=== PATIENT | male | born 1990 | race Caucasian/White ===

== ENCOUNTER → 2020-07-10 | Outpatient (CLI) | payer OTHER ==
[2020-07-10 15:37] LABS: BASOPHILS % (AUTO) 1 % (0-1); EOSINOPHILS % (AUTO) 7 % (1-7); LYMPHOCYTES % (AUTO) 35 % (22-44); MEAN CORPUSCULAR HGB CONC 34.4 g/dL (33.2-36.2); MEAN PLATELET VOLUME 8.6 fL (7.4-10.4); MONOCYTES % (AUTO) 6 % (2-9); NEUTROPHILS % (AUTO) 51 % (42-75); PLATELET COUNT 339 x10^3/uL (130-400); RED BLOOD COUNT 4.85 x10^6/uL (4.38-5.82); RED CELL DISTRIBUTION WIDTH 13.9 % (9.4-14.8)
[2020-07-10 15:45] LABS: MD NO
[2020-07-10 15:50] LABS: ANION GAP 4 mmol/L (5-15); CALCIUM 9.1 mg/dL (8.5-10.1); CHLORIDE 107 mmol/L (98-107)
[2020-07-10 15:52] LABS: CREATININE 1.38 mg/dL (0.7-1.3)
[2020-07-10 15:55] LABS: INTERNATIONAL NORMALIZED RATIO 1.01 (0.93-1.1); PROTHROMBIN TIME 10.7 Seconds (9.6-11.5)
[2020-07-10 16:21] LABS: MICROSCOPIC NOT IND
== END | disposition home or self-care (01) ==
LOC: STAR 14:42
PROVIDERS: ATTEND Neurological Surgery
DX: Z01.812 Encounter for preprocedural laboratory examination (principal); Z20.828 Contact with and (suspected) exposure to other viral communicable diseases; M48.02 Spinal stenosis, cervical region; I49.8 Other specified cardiac arrhythmias
CPT/HCPCS: 80048; 81003; 85025; 85610; 85730; 87635; 93005

== ENCOUNTER 2020-07-16 08:52 | Day surgery (SDC) | payer OTHER ==
[~2020-07-16] VITALS: Ht 177.8 cm; Wt 83.3 kg
[2020-07-16 09:24] VITALS: BP 142/83
[2020-07-16] MEDS ORDERED: CHLORHEXIDINE 15 ML UDC ONE (09:28)
[2020-07-16] MEDS ORDERED: CHLORHEXIDINE 15 ML UDC MM ONE (09:30)
[2020-07-16] MEDS: LACTATED RINGERS 1,000 ML IV SCH ×2 (09:56→17:10)
[2020-07-16] MEDS ORDERED: HALOPERIDOL 5 MG/ML IV PRN (10:00)
[2020-07-16] MEDS ORDERED: PROMETHAZINE 25 MG/ML, 1ML IVPush PRN (10:00)
[2020-07-16] MEDS ORDERED: hydrALAzine 20 MG/ML, 1ML IV PRN (10:00)
[2020-07-16] MEDS ORDERED: OXYcodone 5 MG/5 ML ORAL.SOL UDC PO PRN (10:00)
[2020-07-16] MEDS ORDERED: HYDROmorphone 1 MG/ML, 1ML INJ IVPush PRN (10:00)
[2020-07-16] MEDS ORDERED: LABETALOL 5MG/ML, 20ML IV PRN (10:00)
[2020-07-16] MEDS ORDERED: MEPERIDINE/PF 25MG/0.5ML IVPush PRN (10:00)
[2020-07-16] MEDS ORDERED: DIPHENHYDRAMINE 50 MG/ML, 1ML IVPush PRN (10:00)
[2020-07-16] MEDS ORDERED: ACETAMINOPHEN 500 MG TABLET ONE (10:08)
[2020-07-16] MEDS ORDERED: GABAPENTIN 300 MG CAPSULE ONE (10:09)
[2020-07-16] MEDS ORDERED: METHYLENE BLUE 50 MG/10 ML AMP ONE (10:10)
[2020-07-16] MEDS ORDERED: EPINEPHRINE 1 MG/ML, 1ML ONE (10:10)
[2020-07-16] MEDS ORDERED: BACITRACIN 50,000 UNIT ONE (10:10)
[2020-07-16] MEDS ORDERED: BUPIVACAINE/PF 0.5% ONE (10:10)
[2020-07-16] MEDS ORDERED: GABAPENTIN 300 MG CAPSULE PO ONE (10:30)
[2020-07-16] MEDS ORDERED: ACETAMINOPHEN 500 MG TABLET PO ONE (10:30)
[2020-07-16] MEDS ORDERED: FENTANYL PF 250 MCG/5ML ONE (10:59)
[2020-07-16] MEDS ORDERED: MIDAZOLAM 1 MG/ML, 2ML ONE (10:59)
[2020-07-16] MEDS ORDERED: DEXAMETHASONE 4 MG/ML, 1ML ONE (11:23)
[2020-07-16] MEDS ORDERED: BACITRACIN 50,000 UNIT IRRIG ONE (11:47)
[2020-07-16] MEDS ORDERED: BUPIVACAINE/PF-EPI 0.5% 1:200K INFIL ONE (11:47)
[2020-07-16] MEDS ORDERED: GLYCOPYRROLATE 0.2MG/1ML, 5ML ONE (12:42)
[2020-07-16] MEDS ORDERED: ONDANSETRON 2MG/ML, 2ML ONE (12:42)
[2020-07-16] MEDS ORDERED: CEFAZOLIN 1,000 MG ONE (12:42)
[2020-07-16] MEDS ORDERED: NEOSTIGMINE 1 MG/ML, 10ML ONE (12:42)
[2020-07-16] MEDS ORDERED: SUCCINYLCHOLINE 20 MG/ML, 10ML ONE (12:42)
[2020-07-16] MEDS ORDERED: ROCURONIUM 10MG/ML,5ML ONE (12:42)
[2020-07-16] MEDS ORDERED: PROPOFOL 10 MG/ML, 20ML ONE (12:42)
[2020-07-16] MEDS ORDERED: FENTANYL PF 100 MCG/2ML ONE (13:33)
[2020-07-16] MEDS ORDERED: OXYcodone 5 MG/5 ML ORAL.SOL UDC ONE (13:33)
[2020-07-16] MEDS: FENTANYL PF 100 MCG/2ML IV PRN ×2 (13:36→13:41)
[2020-07-16] MEDS ORDERED: HYDROcodone/APAP 10/325 MG TABLET PO PRN (14:30)
[2020-07-16] MEDS ORDERED: CYCLOBENZAPRINE 10 MG TABLET PO PRN (14:30)
[2020-07-16] MEDS ORDERED: OXYcodone/APAP 5/325MG TABLET PO PRN (17:00)
[2020-07-16] MEDS ORDERED: ONDANSETRON 2MG/ML, 2ML IVPush PRN (17:00)
== END 2020-07-16 21:20 | disposition home or self-care (01) ==
LOC: OUT 08:52
PROVIDERS: ATTEND Neurological Surgery
DX: M54.12 Radiculopathy, cervical region (principal); M47.12 Other spondylosis with myelopathy, cervical region; M25.78 Osteophyte, vertebrae; M48.02 Spinal stenosis, cervical region; Z72.89 Other problems related to lifestyle; Z79.899 Other long term (current) drug therapy; Z90.49 Acquired absence of other specified parts of digestive tract; Z98.890 Other specified postprocedural states; Z83.3 Family history of diabetes mellitus; Z82.49 Family history of ischemic heart disease and other diseases of the circulatory system
CPT/HCPCS: 22856; 36415; 63001; 72040; 86850; 86900; C1776; J0171; J0330; J0690; J1100; J2250; J2405; J2704; J2710; J3010; J7120; Q9968